=== PATIENT | female | born 1965 | race Caucasian/White ===

== ENCOUNTER → 2018-06-28 | Outpatient (REF) | payer OTHER ==
[2018-06-28 13:15] LABS: INFLUENZA A AMPLIFICATION NEGATIVE (NEGATIVE); INFLUENZA B AMPLIFICATION NEGATIVE (NEGATIVE)
== END ==
LOC: M LAB REF 12:32
PROVIDERS: ATTEND Nurse Practitioner Family
DX: R50.9 Fever, unspecified (principal)

== ENCOUNTER → 2019-03-05 | Outpatient (REF) | payer OTHER | LOC: M LAB REF 15:27 | PROVIDERS: ATTEND Nurse Practitioner Family | DX: E78.5 Hyperlipidemia, unspecified (principal) ==

== ENCOUNTER → 2019-03-19 | Outpatient (CLI) | payer OTHER ==
[~2019-03-19] MED LIST: ALEV220T22 PO; ALL10TAB29 PO; ASPI81TA85 PO; CHOL100029 PO; CVS1CAP2 PO; KRIL1CAP10 PO; L-LY500T6 PO; LISI-542 PO
[2019-03-19 09:06] LABS: HEMOGLOBIN 13.6 g/dl (12.0-15.5); MEAN CORPUSCULAR HEMOGLOBIN 30.5 pg (27.0-33.0); MEAN CORPUSCULAR VOLUME 89.7 fl (80.0-96.0); PLATELET COUNT, AUTOMATED 256 10^3/uL (150-450); RED BLOOD COUNT 4.46 10^6/uL (4.00-5.40); WHITE BLOOD COUNT 5.3 10^3/uL (4.0-10.0)
[2019-03-19 09:23] LABS: INR 1.08; PROTHROMBIN TIME 13.7 SECONDS (11.8-14.0)
[2019-03-19 09:29] LABS: ALT/SGPT 34 U/L (12-78); BILIRUBIN,TOTAL 0.5 MG/DL (0.2-1.0); BLOOD UREA NITROGEN 14 MG/DL (7-18); CALCIUM LEVEL 9.4 MG/DL (8.5-10.1); CARBON DIOXIDE LEVEL 29 MEQ/L (21-32); CHLORIDE LEVEL 107 MEQ/L (98-107); CREATININE FOR GFR 0.83 MG/DL (0.55-1.30); GLOMERULAR FILTRATION RATE > 60.0 (>51); GLUCOSE, FASTING 75 MG/DL (70-100); POTASSIUM SERUM 4.1 MEQ/L (3.5-5.1); SODIUM LEVEL 142 MEQ/L (136-145); TOTAL PROTEIN 7.4 GM/DL (6.4-8.2)
--- NOTE | 2019-03-19 09:31 | REP ---
Two-view chest: 03/19/2019. Indication: Preoperative assessment. Comparison: None. Findings: The lungs are clear. There is no pleural effusion or pneumothorax. The cardiomediastinal silhouette is unremarkable. Impression: No acute cardiopulmonary process. Electronically Signed by Dami Moreau DO 03/19/2019 09:22 A
[2019-03-19 09:41] LABS: ERYTHROCYTE SEDIMENTATION RATE 23 mm/hr (0-30)
--- NOTE | 2019-03-21 00:59 | ECGEPIP ---
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
== END ==
LOC: M LAB 08:15
PROVIDERS: ATTEND Orthopaedic Surgery
DX: Z01.818 Encounter for other preprocedural examination (principal); M17.11 Unilateral primary osteoarthritis, right knee

== ENCOUNTER → 2019-03-31 | Outpatient (CLI) | payer OTHER ==
[~2019-03-31] MED LIST changes: +PERC5TAB12 PO; +XARE10TA PO
== END ==
LOC: M PT 15:21
PROVIDERS: ATTEND Physician Assistant
DX: M17.11 Unilateral primary osteoarthritis, right knee (principal)

== ENCOUNTER 2019-04-02 11:09 | Inpatient (IN) | payer OTHER ==
--- NOTE | 2019-03-31 15:57 | HPE ---
DATE OF ADMISSION: 04/02/2019 CHIEF COMPLAINT: Right knee pain. HISTORY OF PRESENT ILLNESS: Susan is a pleasant, 53-year-old female with progressively worsening right knee pain and stiffness. She has failed to improve with conservative treatment. She has elected for surgery for her continued symptoms. She has pain with weightbearing activities and her activities of daily living. X-rays of her knee are notable for advanced osteoarthritis of the right knee joint. She has consented for a right total knee arthroplasty by Dr. Alejandro Ernandez. Medical optimization was done by Dr. Barrett. ALLERGIES: SULFA, PENICILLIN, and BEES. CURRENT MEDICATIONS: - Lisinopril 5 mg - baby aspirin - cetirizine 10 mg - vitamin D3 25 mcg - MegaRed [place] supplement - probiotic - naproxen 500 twice a day as needed PAST MEDICAL HISTORY: Includes hypertension. PAST SURGICAL HISTORY: Includes right knee arthroscopy. 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 She does not smoke, does not drink. Family history is noncontributory. REVIEW OF SYSTEMS: This patient denies chest pain, heart palpitations, cough, wheezing, difficulty breathing and shortness of breath. She denies abdominal pain, nausea, vomiting, diarrhea or constipation. She denies recent upper respiratory infection or urinary tract infection symptoms. She does complain of persistent pain in her right knee. PHYSICAL EXAMINATION: General: She a is well-nourished, well-developed, in no acute distress, alert female patient. She walks with a moderate limp favoring her right lower extremity. She does use a single-leg cane. Vital signs: She is 62 inches tall, weighs 226.4 pounds, temperature 97.6, blood pressure 130/76, pulse of 88 and respirations of 15. Neck was supple without adenopathy or jugular venous distension. Lungs were clear to auscultation without rales or wheeze throughout. Heart: Regular rate and rhythm. Abdomen: Bowel sounds were present. Extremities: Examination of the knee revealed intact skin. She had decreased range of motion due to pain and stiffness. The limb is neurovascularly intact. LABORATORY DATA: Chest x-ray showed no acute cardiopulmonary disease processes. EKG showed sinus rhythm at 77 beats per minute. ProTime 13.7, INR 1.08. Glucose 75. BUN 14, creatinine 0.83. Sodium 142, potassium 4.1. CBC was within normal limits. Sed rate was 23. IMPRESSION: Symptomatic osteoarthritis of the right knee joint. PLAN: Consented for a right total knee arthroplasty by Dr. Alejandro Ernandez.
--- NOTE | 2019-03-31 19:01 | CR ---
DATE OF CONSULTATION: 04/02/[address] Ernandez, thank you for asking me to see Ms. Susan Greenwood in consultation prior to her right TKA Ms. Greenwood is as you know a 53-year-old female past medical history of hypertension allergic rhinitis, obesity who reports that she has been in her usual state of health except for 6 years, progressive decline in the use of her knees. The patient reports that she has had physical therapy shots meniscus surgery and still her knee pain and disability has progressed she is still active wearing a monitor walking up to seven miles a day doing yard work and in house activities. She denies any associated chest pain, palpitations, syncope or presyncope. The patient has already been instructed be off aspirin, Naproxen and this has been on hold for 5 days. The patient reports a past history of psoriasis. Follows with dermatology has topical therapies. She uses as needed for bothers of her eyelids and feet. The patient does report previous difficulty coming up from anesthesia as a teenager with nausea and vomiting. The patient reports history of for possible vocal cord dysfunction. She no longer uses any inhalers as she initially was thought to have asthma. Patient has history of gastroesophageal reflux disease. She is clinically asymptomatic. The patient otherwise denies any fevers or chills, chest pain or shortness of breath, nausea, vomiting, change in bowels. PAST MEDICAL HISTORY: 1. Gastroesophageal reflux disease. 2. Hypertension. 3. Psoriasis. 4. Osteoarthritis bilateral knees. 5. History of vocal cord dysfunction. 6. Left knee meniscal tear with shots and treatments [facility]. 7. Right knee injury. 8. Allergic rhinitis. 9. Polycystic ovarian syndrome with a history of laparoscopy. 10. Hyperlipidemia. 11. Pre diabetes. MEDICATIONS: Cetirizine 10 mg daily, Elidel as needed for rash, epi pack for anaphylaxis, Flonase as needed for allergies, lisinopril 5 mg daily, probiotic daily, eyedrops for dry eyes, triamcinolone for eyelid psoriasis as needed DRUG ALLERGIES: Penicillin anaphylaxis, sulfa anaphylaxis, bee stings anaphylaxis, s Zofran hives and also albuterol reaction unknown. SOCIAL HISTORY: Works for [employer], has a significant partner, lives in [place]. She enjoys [employer] and outside work. The patient has never smoked. Occasionally consumes alcohol. FAMILY HISTORY: Father had heart disease, at age 79, diabetes and Parkinson's. Mother had depression, coronary artery disease, of a heart attack at age 79 but had a heart attack at age 50. She has no children a brother had hypertension, psoriasis a sister had a stroke at the age of 50. Grandparents had some depression and an aneurysm. PHYSICAL EXAMINATION: Overweight female in no acute distress. Vital signs are weight 223 with a BMI of 41, blood pressure 126/82 with a heart rate of 61. HEENT exam head is normocephalic. Neck is supple. Pupils equal, reactive to light. Extraocular movements are intact. Sclerae is anicteric. She does wear eyeglasses. Tympanic membranes, external auditory canals normal. Tongue is midline. Posterior pharynx without inflammation. Neck is supple. No thyromegaly, JVD or carotid bruits. Respiratory: Clear to auscultation, resonant to percussion. Cardiovascular: Regular rate and rhythm. No murmur, rub, gallop. Abdomen: Obese, soft, nontender. No hepatosplenomegaly. Extremities: No cyanosis, clubbing or edema. Dermatologic no significant active psoriasis noted. Neurologic: Alert and oriented. Cranial nerves II-XII are intact. LABORATORY DATA: from 02/2019 normal PT/PTT med profile, liver panel, CBC. The patient's last A1c was 5.7. on the past medical history add pre diabetes. Chest x-ray 02/2019 [facility] shows no significant disease. EKG 02/2019 shows normal sinus rhythm, incomplete right bundle branch block. No priors for comparison. IMPRESSION: Ms. Susan Greenwood is a 53-year-old female with multiple cardiovascular risk factors including age, hypertension, hyperlipidemia, pre diabetes and family history has no signs or symptoms indicative of cardiovascular ischemia and is felt to be optimized and at low risk for cardiovascular complications from the proposed surgical intervention which can be further minimized by the following. 1. Hypertension. Hold lisinopril morning of surgery diet, exercise, salt restriction discussed. 2. Allergic rhinitis. Take cetirizine and nasal sprays morning of surgery. 3. OA DJD, she already has her aspirin and Naprosyn on hold 5 days before surgery. 4. Psoriasis. I have approved topical treatments including morning as surgery as needed. 5. Obesity. Dietary advice reviewed. 6. Hyperglycemia, low carb diet reviewed. 7. Hyperlipidemia diet, exercise encouraged. Thank you very much for this consultation. Please call with questions or concerns.
[~2019-04-02] VITALS: Ht 154.9 cm; Wt 96.7 kg
[~2019-04-02 11:09] MED LIST changes: +ACETAMINOPHEN 500 MG TAB PO ONE; +LIDOCAINE 1% MDV 20ML VIAL SQ PRN; +LR 1,000 ML IV ONE; -PERC5TAB12 PO; +UNRESOLVED CLARIFICATION ENTRY XX SCH; -XARE10TA PO
[2019-04-02] MEDS ORDERED: PROPOFOL 500 MG/50 ML VIAL As Ordered ONE (11:22)
[2019-04-02] MEDS ORDERED: MIDAZOLAM INJ 2 MG/2 ML VIAL (J2250) As Ordered ONE ×2 (11:23→13:41)
[2019-04-02] MEDS ORDERED: LIDOCAINE 2% INJ 100 MG/5 ML SDV (FOR ANES.) As Ordered ONE (11:23)
[2019-04-02] MEDS ORDERED: ONDANSETRON 4MG/2ML VIAL (J2405) As Ordered ONE (11:23)
[2019-04-02] MEDS ORDERED: ePHEDrine SULFATE 25 MG/5 ML(5MG/ML) SYRINGE As Ordered ONE (11:56)
[2019-04-02] MEDS ORDERED: EPINEPHrine INJ 1 MG/ML 1ML AMP As Ordered ONE (12:28)
[2019-04-02] MEDS ORDERED: TRANEXAMIC ACID 100 MG/ML 10ML VIAL As Ordered ONE (12:28)
[2019-04-02] MEDS ORDERED: CLINDAMYCIN INJ 900MG/6ML VIAL As Ordered ONE (12:28)
[2019-04-02] MEDS ORDERED: BUPIVACAINE LIPOSOME/PF 1.3% 20ML VIAL (13.3MG/ML)(EXPAREL)(C9290 PER1MG) As Ordered ONE (12:28)
[2019-04-02] MEDS ORDERED: BUPIVACAINE HCL 0.25% 10 ML VIAL As Ordered ONE (12:28)
[2019-04-02] MEDS ORDERED: BUPIVACAINE HCL 0.25% 30 ML VIAL As Ordered ONE ×2 (12:29→13:45)
[2019-04-02] MEDS ORDERED: ceFAZolin SOD 2 GM in IV 1 EA IV ONE (12:45)
[2019-04-02] MEDS ORDERED: fentaNYL 100 MCG/2 ML INJECTION (J3010) As Ordered ONE (13:41)
[2019-04-02] MEDS ORDERED: fentaNYL 100 MCG/2 ML INJECTION (J3010) IV ONE (14:15)
[2019-04-02] MEDS ORDERED: MIDAZOLAM INJ 2 MG/2 ML VIAL (J2250) IV ONE (14:15)
[2019-04-02] MEDS ORDERED: dexameTHASONE 10 MG/1 ML VIAL PRES.FREE (J1100) ONE (14:46)
[2019-04-02] MEDS ORDERED: LIDOCAINE 1% MDV 20ML VIAL ONE (14:46)
[2019-04-02] MEDS ORDERED: ROPIvacaine 0.5% 30 ML INJECTION (J2795 PER 1MG) ONE (14:46)
[2019-04-02] MEDS ORDERED: PHENYLephrine HCL 500 MCG/5 ML (100MCG/ML) SYRINGE (J2370) As Ordered ONE ×2 (14:50→15:26)
[2019-04-02] MEDS ORDERED: PROPOFOL 200 MG/20 ML VIAL As Ordered ONE ×2 (15:10→15:42)
[2019-04-02 16:20] VITALS: BP 172/100
[2019-04-02] MEDS ORDERED: ONDANSETRON 4MG/2ML VIAL (J2405) IV PRN (16:30)
[2019-04-02] MEDS ORDERED: HYDROMORPHONE HCL 0.5 MG/ 0.5 ML SYRINGE (J1170 PER 1) IV PRN ×3 (16:30)
[2019-04-02] MEDS ORDERED: PERCOCET 5MG/325MG TAB PO PRN (16:30)
[2019-04-02] MEDS ORDERED: LR 1,000 ML IV SCH ×2 (16:30→16:45)
[2019-04-02] MEDS ORDERED: fentaNYL 100 MCG/2 ML INJECTION (J3010) IV PRN (16:30)
[2019-04-02] MEDS ORDERED: FLEET ENEMA PR PRN (16:45)
--- NOTE | 2019-04-02 16:56 | CR.PDOC ---
General Date of Consultation: Apr 02, 2019 Consultation REASON FOR CONSULTATION/CHIEF COMPLAINT: Who presented to [facility] for an elective total right knee arthroplasty HISTORY OF PRESENT ILLNESS: Patient is a 53-year-old female with past history of hypertension who presented to the [facility] for an elective procedure with orthopedic surgery. Patient was scheduled for an elective total right knee arthroplasty with Dr. Kennedy Bynum. Patient had received outpatient medical clearance from her primary care provider, Dr. Mcgovern. Patient has reported that she has failed conservative measures with oral analgesia and joint injections. Patient was seen postoperatively. . Currently she denies any headache, nausea, vomiting, chest pain, shortness of breath, palpitations, cough, abdominal pain, constipation, diarrhea, or urinary discomfort. Palpitations. Denied any fevers or chills over the last 2 weeks. She denies any recent change in her appetite or her weight. ALLERGIES: Please see below. HOME MEDICATIONS: Please see below. 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 ASSESSMENT/PLAN: Elective right knee total arthroplasty - Patient has received outpatient medical clearance from her primary care provider, Dr. Mcgovern - Pain control and evaluation and physical therapy at the direction of primary orthopedic team HTN - BP remains well controlled - Will resume Lisinopril with holding parameters DVT prophylaxis - As per orthopedic team Vital Signs/I&O Vital Signs Date Time Temp Pulse Resp B/P (MAP) Pulse Ox O2 Delivery O2 Flow Rate FiO2 04/02/19 14:05 67 18 123/69 (87) 99 Nasal Cannula 3 04/02/19 13:40 96.7 Allergies Coded Allergies: Penicillins (Verified Allergy, Severe, throat closes, 03/20/19) Sulfa (Sulfonamide Antibiotics) (Verified Allergy, Severe, throat closes, 03/20/19) prednisolone acetate, micronized (Verified Allergy, Severe, vocal cord dysfunction, couldn't talk or walk, 03/20/19) Uncoded Allergies: inhalers (Adverse Reaction, Unknown, advised not to use, 03/20/19) States advised not to use after reaction to prednisone Home Medications Scheduled Aspirin (Aspir 81) 81 Mg Tablet.dr, 81 MG PO DAILY, #30 (Reported) Cetirizine HCl (Cetirizine HCl) 10 Mg Tablet, 10 MG PO DAILY, (Reported) Krill/Om-3/Dha/Epa/Phospho/Ast (Megared [place]-3 Krill Oil Sfgl) 1 Each Capsule, 1 EACH PO DAILY, (Reported) Lactobacillus Combo No.10 (Probiotic) 1 Each Capsule, 1 CAP PO DAILY, (Reported) Lisinopril (Lisinopril) 5 Mg Tablet, 5 MG PO DAILY, (Reported) Lysine (l-Lysine) 500 Mg Tablet, 1,000 MG PO DAILY, (Reported) Vitamin D (Vitamin D3) 1,000 Unit Tablet, 1,000 UNITS PO DAILY, (Reported) Scheduled PRN Naproxen Sodium (Aleve) 220 Mg Tablet, 220 MG PO PRN PRN for PAIN, (Reported) SCOT ANDREWS MD Apr 02, 2019 16:56
--- NOTE | 2019-04-02 17:08 | REP ---
Clinical: Status post knee replacement. Technique AP and cross-table lateral views. Findings: The patient is status post right knee replacement with normal positioning and appearance to the femoral and tibial components. Overlying postsurgical changes appreciated. Impression: Status post right knee replacement. Electronically Signed by Stevenson Funk MD 04/02/2019 04:58 P
[2019-04-02 17:50] VITALS: BP 167/101
[2019-04-02 18:50] VITALS: BP 158/91
[2019-04-02 19:50] VITALS: BP 157/92
[2019-04-02] MEDS: ceFAZolin SOD 2 GM in IV 1 EA IV SCH (19:50)
[2019-04-02] MEDS: ACETAMINOPHEN TAB 650MG DOSE (2X325MG) PO PRN (20:00)
[2019-04-02 20:50] VITALS: BP 157/87
[2019-04-02 21:50] VITALS: BP 153/88
[2019-04-03] MEDS: ACETAMINOPHEN TAB 650MG DOSE (2X325MG) PO PRN ×2 (00:03→06:07)
[2019-04-03 01:53] VITALS: BP 103/61
[2019-04-03] MEDS: ceFAZolin SOD 2 GM in IV 1 EA IV SCH ×2 (02:23→10:10)
[2019-04-03] MEDS ORDERED: PERCOCET 5MG/325MG TAB PO PRN ×2 (05:45)
[2019-04-03] MEDS ORDERED: PERC5TAB12 PO (06:04)
[2019-04-03] MEDS ORDERED: XARE10TA PO (06:04)
[2019-04-03 06:21] VITALS: BP 125/87
[2019-04-03 06:38] LABS: BASO % 0.1 % (0.0-1.0); HEMATOCRIT 35.9 % (36.0-47.0); HEMOGLOBIN 12.1 g/dl (12.0-15.5); LYMPH # 0.7 10^3/uL (1.5-5.0); LYMPH % 4.9 % (24.0-44.0); MEAN CORPUSCULAR HEMOGLOBIN 30.6 pg (27.0-33.0); MEAN CORPUSCULAR HGB CONC 33.7 g/dl (32.0-36.5); MEAN CORPUSCULAR VOLUME 90.9 fl (80.0-96.0); MONO # 0.9 10^3/uL (0.0-0.8); MONO % 5.7 % (0.0-5.0); NEUTROPHILS # 13.2 10^3/uL (1.5-8.5); NEUTROPHILS % 88.8 % (36.0-66.0); PLATELET COUNT, AUTOMATED 226 10^3/uL (150-450); RED BLOOD COUNT 3.95 10^6/uL (4.00-5.40); WHITE BLOOD COUNT 14.8 10^3/uL (4.0-10.0)
[2019-04-03 06:50] LABS: INR 1.18; PROTHROMBIN TIME 14.7 SECONDS (11.8-14.0)
[2019-04-03 06:57] LABS: BLOOD UREA NITROGEN 12 MG/DL (7-18); CALCIUM LEVEL 8.6 MG/DL (8.5-10.1); CARBON DIOXIDE LEVEL 26 MEQ/L (21-32); CHLORIDE LEVEL 107 MEQ/L (98-107); CREATININE FOR GFR 0.72 MG/DL (0.55-1.30); GLOMERULAR FILTRATION RATE > 60.0 (>51); GLUCOSE, FASTING 167 MG/DL (70-100); MAGNESIUM LEVEL 1.9 MG/DL (1.8-2.4); SODIUM LEVEL 140 MEQ/L (136-145)
[2019-04-03] MEDS ORDERED: lisinopriL 5 MG TAB PO SCH (09:00)
[2019-04-03] MEDS ORDERED: VITAMIN D 1,000 INTERNATIONAL UNITS TABLET PO SCH (09:00)
[2019-04-03] MEDS ORDERED: MIRALAX *UNIT DOSE* 17GM PACKET PO SCH (09:00)
[2019-04-03] MEDS ORDERED: MOM 30ML SUSPENSION UDC PO SCH (09:00)
[2019-04-03] MEDS ORDERED: ACETAMINOPHEN 500 MG TAB PO PRN (09:00)
[2019-04-03] MEDS ORDERED: SENOKOT S TAB PO SCH (09:00)
[2019-04-03] MEDS ORDERED: CETIRIZINE (ZyrTEC) 10 MG TAB PO SCH (09:00)
[2019-04-03] MEDS ORDERED: LACTOBACILLUS ACIDOPHILUS CAP (BACID) PO SCH (09:00)
--- NOTE | 2019-04-03 09:03 | RO ---
DATE OF PROCEDURE: 04/02/2019 PREOPERATIVE DIAGNOSIS: Right knee degenerative arthritis. POSTOPERATIVE DIAGNOSIS: Right knee degenerative arthritis. PROCEDURE: Right total knee arthroplasty using a size 4 cruciate retaining femoral component and a size 4 tibial tray with a 5 mm rotating platform polyethylene insert and a 35 mm polyethylene button. All components were cemented. Prosthesis made by [employer]. It was an Attune knee. SURGEON: Roselyn Cavanaugh MD REFRIGERATOR GLAZIER: JASMIN Gayle ANESTHESIA: Spinal with right femoral nerve block. COMPLICATIONS: None. ESTIMATED BLOOD LOSS: 20 mL. SPECIMEN: Joint surface. DESCRIPTION OF PROCEDURE: Antibiotics were given intravenously preoperatively and a successful right femoral nerve block and then a spinal anesthetic was induced. Tourniquet placed on right upper thigh and not inflated. Right lower extremity was carefully prepped and draped in the usual sterile fashion, elevated, and after appropriate time-out tourniquet was inflated. A longitudinal incision was made for a medial parapatellar approach to the knee. Bovie cautery used to coagulate the crossing vessels. Subperiosteal dissection around the proximal medial and lateral tibia was performed. The patella was everted and then the knee flexed. Anterior cruciate ligament (ACL) debrided. Then, the drill was placed down the center of the femoral canal with an intramedullary denia and the distal femoral cutting jigs set at 5 degree valgus cut and 9 mm resection level for a right knee. It was pinned into position. Then, the distal femoral cut was performed. The AP sizing jig measured for a size #4 prosthesis. 3 degrees of external rotation dialed in. Pins placed. 4-in-1 block applied. Anterior, posterior, chamfer cuts performed. Sulcus jig was placed for the sulcus osteotomy and then we exposed the proximal tibia and used the extramedullary denia and alignment jig to estimate being parallel to the mechanical axis of the tibia referencing off the medial tibial condyle measured at 4 mm resection level and then the block was pinned into positon. Then, the extramedullary denia was used as secondary check to be sure that we appeared to be parallel to the mechanical axis. The proximal tibial osteotomy was thus performed. The lamina helper steel fabrication was placed medially and we performed a completion lateral meniscectomy with debridement of posterior lateral osteophytes. We then placed the lamina helper steel fabrication laterally and performed a completion medial meniscectomy and debridement of posterior medial osteophytes. We then placed the spacer block. The 5 mm was a bit snug both in flexion and in extension. Thus, I elected to take two more millimeters of the proximal tibia. The block was reapplied. Osteotomy performed. We irrigated the knee joint and then the spacer at 5 mm fit both in flexion and in extension. Thus, at this point, I exposed the proximal tibia and sized for a #4 tibial tray. It was pinned into position, followed by the reamer and broach, then the trial placed. The trial femoral component was placed. We brought the knee into extension. Everted the patella. Performed patellar osteotomy. Drilled the lug holes after sizing for a 35. The trial was placed. Patellofemoral tracking was anatomic. Thus, at this point, we drilled the lug holes for the femur. Then, we removed all the trial components. Placed Exparel in the subperiosteal tissues around the distal femur and then I prepared the bony surfaces for cementing with a copious amount of pulsatile lavage irrigant solution as my assistant city attorney, Ms. Ros Martinez, mixed the cement on the back table. She was also critical to the success of this difficult operative intervention by helping with appropriate soft tissue retraction, helped to flex and extend the knee and manipulate the knee as needed, helped to mix the cement and helped close the wound, helped to prepare the patient otherwise for surgery amongst many other tasks to allow me to perform the operation smoothly, efficiently and safely. Once all the bony surfaces were thoroughly irrigated and dried, we cemented the tibial tray, removed excess cement and placed the polyethylene, and then cemented the femoral component and removed excess cement and then brought the knee out in extension, everted the patella and cemented the patellar button and removed excess cement and held it with a clamp until the cement hardened. As we were awaiting this, we copiously pulsatile lavage irrigated out the knee joint until the cement hardened and then we began closing the apex, the arthrotomy with two #1 PDS sutures and then closed medial parapatellar area with a single #1 PDS suture, and then a double armed #1 Stratafix was used to close the capsule. We copiously irrigated between layers and then let the tourniquet down, and then #2-0 PDS suture was used to close the subdermal tissues. The skin was closed with ernie covered by an Optifoam and dry sterile bulky dressing, and then the patient was transferred to the recovery room in stable condition. There were no intraoperative complications.
[2019-04-03 10:11] VITALS: BP 125/87
--- NOTE | 2019-04-03 16:54 | IPNPDOC ---
Text Note Date of Service The patient was seen on 04/03/19. NOTE S: Pt examined at bedside. Has no complaints. Eager to go home. States pain is controlled, cleared PT, and tolerating food well. Denies f/c/n/v/abd pain/bleeding. PE: Vitals: see below General: NAD, A&Ox3, resting comfortably HEENT: NCAT, EOMI, anicteric sclera, MMM CV: RRR, no murmurs or clicks or rub. No edema RESP: CTAB, no w/r/r/ ABD: soft, NT, ND. Benign EXTREMITIES: 2+ radial pulses b/l, able to move all extremities NEURO: no focal deficits or acute changes A/P: 1. S/p elective rt knee total arthroplasty: doing well. AC, diet, activity, pain control as per Ortho. 2. HTN: bp well-controlled. Continue current regimen DVT ppx: Xarelto as per Ortho DISPO: pt is medically doing well. DC as per ortho. VS,Fishbone, I+O VS, Fishbone, I+O Laboratory Tests 04/03/19 05:52 Vital Signs Date Time Temp Pulse Resp B/P (MAP) Pulse Ox O2 Delivery O2 Flow Rate FiO2 04/03/19 10:11 125/87 04/03/19 06:21 97.6 80 18 97 Room Air 04/02/19 14:05 3 I&O- Last 24 Hours up to 6 AM 04/03/19 06:00 Intake Total 6315 ml Output Total 1035 ml Balance 5280 ml GME ATTESTATION GME ATTESTATION My faculty preceptor for this patient encounter was physically present during the encounter and was fully available. All aspects of the patient interview, examination, medical decision making process, and medical care plan development were reviewed and approved by the faculty preceptor. The faculty preceptor is aware and concurs with the plan as stated in the body of this note and will attest to such by his/her cosignature. ATTENDING NOTE I, Cinda Andrews, have independently examined this patient and performed my own physical exam, as well as reviewed the documentation and edited where necessary. I have discussed in detail with the resident / student the findings and plan of treatment as documented by the resident / student and edited their note. I agree with their findings and treatment plan and have edited their documentation. I will continue to follow the patient during this hospital stay. CHASTITY EASON DO Apr 03, 2019 16:54 CINDA ANDREWS MD Apr 04, 2019 08:03
[2019-04-03] MEDS ORDERED: RIVAROXABAN 10 MG TAB (XARELTO) PO SCH (18:00)
--- NOTE | 2019-04-08 11:30 | DSES ---
DATE OF ADMISSION: 04/02/2019 DATE OF DISCHARGE: 04/03/2019 ATTENDING PHYSICIAN: Roselyn Ernandez MD ADMISSION DIAGNOSIS: Osteoarthritis right knee. OTHER DIAGNOSIS: Hypertension. DISCHARGE DIAGNOSIS: Osteoarthritis right knee status post right total knee arthroplasty. OPERATION PERFORMED: Right total knee arthroplasty. HISTORY: This is a pleasant 53-year-old female patient with progressively worsening right knee pain and stiffness. She failed to improve with conservative management. She was admitted for elective knee replacement on the right side. HOSPITAL COURSE: The patient was admitted on day of surgery, underwent a right total knee arthroplasty, which was uneventful. She did well in the postoperative. Her hospital course was without complications. She was up with physical therapy per their protocol and her pain was controlled. On the day of discharge, she was weightbearing as tolerated on her right lower extremity. She will use thromboembolic deterrent stockings (TEDS) for 30 days postoperatively for deep vein thrombosis (DVT) prophylaxis. She will also use Xarelto 10 mg per the protocol for DVT prophylaxis. She will use oral pain medications for pain control. She will follow up in our office in 10-14 days for surgical followup. She was given instructions to include, but not limited to, wound monitoring, activity limitations. Please refer to the medical record for further details.
== END 2019-04-03 11:35 | disposition home or self-care (01) | DRG 470 ==
LOC: M OR 11:09 → M MS5PR 17:10
PROVIDERS: ADMIT Orthopaedic Surgery; ATTEND Orthopaedic Surgery
PROC: 0SRC0J9 Replacement of Right Knee Joint with Synthetic Substitute, Cemented, Open Approach (ICD-10-PCS; principal; 2019-04-02 13:45)
DX: M17.0 Bilateral primary osteoarthritis of knee (principal); Z68.41 Body mass index [BMI] 40.0-44.9, adult; I10 Essential (primary) hypertension; R26.89 Other abnormalities of gait and mobility; E66.9 Obesity, unspecified; J30.9 Allergic rhinitis, unspecified; L40.9 Psoriasis, unspecified; K21.9 Gastro-esophageal reflux disease without esophagitis; E78.5 Hyperlipidemia, unspecified; R73.03 Prediabetes; E28.2 Polycystic ovarian syndrome; Z88.0 Allergy status to penicillin; Z79.82 Long term (current) use of aspirin; Z79.899 Other long term (current) drug therapy; Z91.030 Bee allergy status; Z88.8 Allergy status to other drugs, medicaments and biological substances

== ENCOUNTER → 2020-09-08 | Outpatient (CLI) | payer OTHER ==
[~2020-09-08] MED LIST changes: -ACETAMINOPHEN 500 MG TAB PO ONE; -ALL10TAB29 PO; -ASPI81TA85 PO; +ASPI81TA86 PO; +CETI-24 PO; -LIDOCAINE 1% MDV 20ML VIAL SQ PRN; -LISI-542 PO; +LISI-898 PO; -LR 1,000 ML IV ONE; +PERC5TAB12 PO; -UNRESOLVED CLARIFICATION ENTRY XX SCH; +XARE10TA PO
--- NOTE | 2020-09-09 03:45 | REP ---
INDICATION: PAIN LEFT KNEE. COMPARISON: None. TECHNIQUE: AP weightbearing view of the right and left knee. FINDINGS: Right knee replacement appears normal. Left knee demonstrates early advanced tricompartmental arthritic changes including near complete joint space obliteration of the medial compartment with subchondral sclerosis to the tibial plateau as well as medial and lateral cortical irregularities and small osteophytosis. The patellar contour appears slightly sclerotic and irregular. No acute fracture identified. IMPRESSION: Early advanced tricompartmental degenerative changes to the left knee. <Electronically signed by Stevenson Funk > 09/09/20 [id number]
== END ==
LOC: M SOG 13:33
PROVIDERS: ATTEND Orthopaedic Surgery Adult Reconstructive Orthopaedic Surgery
DX: M17.12 Unilateral primary osteoarthritis, left knee (principal); M25.762 Osteophyte, left knee; M22.92 Unspecified disorder of patella, left knee; M25.562 Pain in left knee; Z96.651 Presence of right artificial knee joint

== ENCOUNTER → 2021-12-08 | Outpatient (REF) | payer OTHER ==
[~2021-12-08] MED LIST changes: -LISI-898 PO; +LISI5TAB11 PO
[2021-12-08 14:58] LABS: C REACTIVE PROTEIN QUANTITATIV 0.46 MG/DL (0.00-0.30); RHEUMATOID FACTOR QUANT < 10.0 IU/ML (<15.0)
[2021-12-15 08:46] LABS: DRVV SCREEN 38.7 SEC
[2021-12-19 12:07] LABS: ANTINUCLEAR ANTIBODIES DIRECT Negative (Negative); HLA-B27 Negative (.); SJOGREN'S ANTI SS-A <0.2 AI (0.0-0.9); SJOGREN'S ANTI SS-B <0.2 AI (0.0-0.9)
== END ==
LOC: M LAB REF 12:02
PROVIDERS: ATTEND Registered Nurse
DX: H05.012 Cellulitis of left orbit (principal); H04.123 Dry eye syndrome of bilateral lacrimal glands

== ENCOUNTER → 2023-01-04 | Outpatient (REF) | payer OTHER ==
[2023-01-04 13:40] LABS: APPEARANCE, URINE CLEAR (CLEAR); BACTERIA, URINE AUTO NEGATIVE (NEGATIVE); BILIRUBIN, URINE AUTO NEGATIVE (NEGATIVE); BLOOD, URINE BLOOD NEGATIVE (NEGATIVE); COLOR, URINE YELLOW (YELLOW); GLUCOSE, URINE (UA) AUTO NEGATIVE (NEGATIVE); KETONE, URINE AUTO NEGATIVE (NEGATIVE); LEUKOCYTE ESTERASE, URINE AUTO NEGATIVE (NEGATIVE); NITRITE, URINE AUTO NEGATIVE (NEGATIVE); PROTEIN, URINE AUTO NEGATIVE (NEGATIVE); RBC, URINE AUTO 1 /HPF (0-3); SPECIFIC GRAVITY URINE AUTO 1.012 (1.002-1.035); SQUAMOUS EPITHELIAL CELL UR AU 0 /HPF (0-6); UROBILINOGEN, URINE AUTO 0.2 mg/dL (0.0-2.0); WBC, URINE AUTO 2 /HPF (0-3)
== END ==
LOC: M LAB REF 12:03
PROVIDERS: ATTEND Internal Medicine
DX: R31.9 Hematuria, unspecified (principal); E78.00 Pure hypercholesterolemia, unspecified

== ENCOUNTER → 2023-02-28 | Outpatient (CLI) | payer OTHER | LOC: M CARPUL 10:02 | PROVIDERS: ATTEND Internal Medicine | DX: R01.1 Cardiac murmur, unspecified (principal); I08.3 Combined rheumatic disorders of mitral, aortic and tricuspid valves ==

== ENCOUNTER → 2025-03-17 | Outpatient (CLI) | payer OTHER ==
[~2025-03-17] MED LIST changes: -L-LY500T6 PO; +RA L500T PO
== END ==
LOC: M WUC 08:38
DX: R05.9 Cough, unspecified (principal); R06.2 Wheezing